=== PATIENT | male | born 1990 | race Two or more races ===

== ENCOUNTER 2024-09-13 20:16 | Inpatient (IN) | payer MEDICAID, OTHER ==
[~2024-09-13] VITALS: Ht 185.4 cm; Wt 111.3 kg
--- NOTE | 2024-09-13 20:36 | ED.PDOC ---
History of Present Illness HPI Comments 34 year old male came to ER due to high blood pressure. Patient does have history of hypertension and diabetes. Has good compliance to his medications. For the past 3 days, noted that his blood pressure has been elevated with headaches, left sided chest pains radiating to his left arm. Upon arrival blood pressure was 198/123 mmHg Chief Complaint: High Blood Pressure Time Seen by MD: 20:35 Reviewed Notes: Nurses Notes Allergies: Coded Allergies: Cephalexin (Verified Allergy, Unknown, 09/13/24) Information Source: Patient Mode of Arrival: Ambulatory Severity: Moderate Timing: Hours Duration: Since onset Prehospital treatment: None Past Medical History PAST MEDICAL HISTORY: DM, HTN Surgical History: Denies all surgeries Family History Family History: Reviewed,noncontributory to illness Social History Smoker: Non-Smoker Alcohol: Denies ETOH Use Drugs: Denies Drug Use Lives In: Home Constitutional: denies: chills, diaphoresis, fatigue, fever, malaise, sweats, weakness, others EENTM: denies: blurred vision, double vision, ear bleeding, ear discharge, ear drainage, ear pain, ear ringing, eye pain, eye redness, hearing loss, mouth pain, mouth swelling, nasal discharge, nose bleeding, nose congestion, nose pain, photophobia, tearing, throat pain, throat swelling, voice changes, others Respiratory: denies: cough, hemoptysis, orthopnea, SOB at rest, shortness of breath, SOB with excertion, stridor, wheezing, others Cardiovascular: reports: chest pain, left arm pain; denies: dizzy spells, diaphoresis, Dyspnea on exertion, edema, irregular heart beat, lightheadedness, palpitations, PND, syncope, others Gastrointestinal: denies: abdomen distended, abdominal pain, blood streaked bowels, constipated, diarrhea, dysphagia, difficulty swallowing, hematemesis, melena, nausea, poor appetite, poor fluid intake, rectal bleeding, rectal pain, vomiting, others Genitourinary: denies: burning, dysuria, flank pain, frequency, hematuria, incontinence, penile discharge, penile sore, pain, testicle pain, testicle swel ling, urgency, others Neurological: reports: headache; denies: dizziness, fainting, left sided numbness, left sided weakness, numbness, paresthesia, pre-existing deficit, right sided numbness, right sided weakness, seizure, speech problems, tingling, tremors, weakness, others Musculoskeletal: denies: back pain, gout, joint pain, joint swelling, muscle pain, muscle stiffness, neck pain, others Integumetry: denies: bruises, change in color, change in hair/nails, dryness, laceration, lesions, lumps, rash, wounds, others Allergic/Immunocompromised: denies: Difficulty Healing, Frequent Infections, Hives, Itching, others Hematologic/Lymphatic: denies: anemia, blood clots, easy bleeding, easy bruising, swollen glands, others Endocrine: denies: excessive hunger, excessive sweating, excessive thirst, excessive urination, flushing, intolerance to cold, intolerance to heat, unexplained weight gain, unexplained weight loss, others Psychiatric: denies: anxiety, bipolar disorder, depression, hopeless, panic disorder, schizophrenia, sleepless, suicidal, others Physical Exam General Appearance: No Apparent Distress, Normal HEENT: Normal ENT Inspection, Pharynx Normal, TMs Normal Neck: Full Range of Motion, Non-Tender, Normal, Normal Inspection Respiratory: Chest Non-Tender, Lungs Clear, No Accessory Muscle Use, No Respiratory Distress, Normal Breath Sounds Cardiovascular: No Edema, No JVD, No Murmur, No Gallop, Normal Peripheral Pulses, Regular Rate/Rhythm Breast Exam: Deferred Gastrointestinal: No Organomegaly, Non Tender, No Pulsatile Mass, Normal Bowel Sounds, Soft Genitalia: Deferred Pelvic: Deferred Rectal: Deferred Extremities: No calf tenderness, Normal capillary refill, Normal inspection, Normal range of motion, Non-tender, No pedal edema Musculoskeletal : Apperance: Normal Neurologic: Alert, enamel cracker II-XII nml as Tested, No Motor Deficits, Normal Affect, Normal Mood, No Sensory Deficits Cerebellar Function: Normal Reflexes: Normal Skin: Dry, Normal Color, Warm Lymphatic: No Adenopathy Was a procedure done? Was a procedure done?: No Differential Dx Considerations may include: anemia, electrolyte imbalance, hypertensive urgency X-Ray, Labs, Meds, VS Vital Signs Date Time Temp Pulse Resp B/P (MAP) Pulse Ox O2 Delivery O2 Flow Rate FiO2 09/13/24 22:51 180/120 09/13/24 22:14 96 18 180/120 (140) 96 09/13/24 21:11 94 18 171/116 (134) 96 09/13/24 20:29 98.0 99 18 198/123 (148) 96 Lab Test 09/13/24 21:48 09/13/24 20:56 Range/Units Troponin I High Sensitivity 5 4 </=54 ng/L White Blood Count 9.8 4.4-10.8 10^3/uL Red Blood Count 5.90 4.5-5.90 10^6/uL Hemoglobin 18.2 H 13.5-17.5 g/dL Hematocrit 52.1 41.0-53.0 % Mean Corpuscular Volume 88.2 80.0-100.0 fL Mean Corpuscular Hemoglobin 30.8 28.0-32.0 pg Mean Corpuscular Hemoglobin Concent 34.9 32.0-36.0 g/dL Red Cell Distribution Width 13.1 11.8-14.3 % Platelet Count 266 140-450 10^3/uL Mean Platelet Volume 9.0 6.9-10.8 fL Neutrophils (%) (Auto) 66.4 37.0-80.0 % Lymphocytes (%) (Auto) 23.3 10.0-50.0 % Monocytes (%) (Auto) 8.7 0.0-12.0 % Eosinophils (%) (Auto) 1.1 0.0-7.0 % Basophils (%) (Auto) 0.5 0.0-2.0 % Neutrophils # (Auto) 6.5 1.6-8.6 10 ^3/uL Lymphocytes # (Auto) 2.3 0.4-5.4 10 ^3/uL Monocytes # (Auto) 0.9 0-1.3 10 ^3/uL Eosinophils # (Auto) 0.1 0-0.8 10 ^3/uL Basophils # (Auto) 0.1 0-0.2 10 ^3/uL Nucleated Red Blood Cells 0.2 % Sodium Level 138 136-145 mmol/L Potassium Level 3.7 3.5-5.1 mmol/L Chloride Level 102 98-107 mmol/L Carbon Dioxide Level 28 20-31 mmol/L Anion Gap 8 5-15 Blood Urea Nitrogen 13 9-23 mg/dL Creatinine 1.39 H 0.700-1.30 mg/dL Glomerular Filtration Rate Calc 67 >90 mL/min BUN/Creatinine Ratio 9.4 L 10.0-20.0 Serum Glucose 169 H 74-106 mg/dL Calcium Level 9.8 8.7-10.4 mg/dL Current Medications Medications (Trade) Dose Ordered Sig/Thomas Route Start Time Stop Time Status Last Admin Hydralazine HCl (Apresoline Injection) 10 mg ONCE ONCE IV 09/13/24 22:45 09/13/24 22:46 DC 09/13/24 22:51 Time of 1ST Reevaluation: 20:30 Reevaluation 1ST: Unchanged Patient Education/Counseling: Diagnosis, Treatment Family Education/Counseling: No Family Present Departure 1 Departure Time of Disposition: 23:12 (Patient presented with hypertension and symptoms concerning for hypertensive emergency. Patient is receiving iv blood pressure medications requiring intensive monitoring. Data: 1. I ordered and reviewed the result of at least 3 labs including a CBC, BMP, and Urinalysis. 2. I independently interpreted the following tests: CT Brain: Which appears benign. EKG which is Normal Sinus RhythmRisk:This patient has a high risk of morbidity due to further diagnostic testing or treatment and may suffer from an acute cardiac disorder. Workup reveals hypertensive emergency and patient should be admitted for further workup. and possible expert consultation. ) Impression: Primary Impression: Hypertensive urgency Additional Impressions: Migraine Qualified Codes: G43.119 - Migraine with aura, intractable, without status migrainosus Near syncope Disposition: 09 ADMITTED INPATIENT Admit to: Med Surg Condition: Serious Critical Care Note Critical Care Time?: Yes (35 min-critical care time only) Critical care comment: Hypertensive urgency Authorized and Performed by: William Freeman MD Total critical care time: Approximately 34 minutes Due to a high probability of clinically significant, life threatening deterioration, the patient required my highest level of preparedness to intervene emergently and I personally spent this critical care time directly and personally managing the patient. This critical care time included obtaining a history; examining the patient; pulse oximetry; ordering and review of studies; arranging urgent treatment with development of a management plan; evaluation of patient's response to treatment; frequent reassessment; and, discussions with other providers. This critical care time was performed to assess and manage the high probability of imminent, life-threatening deterioration that could result in multi-organ failure. It was exclusive of separately billable procedures and treating other patients and teaching time. Please see my other sections and the rest of the note for further information on patient assessment and treatment. Stability Stability form required: No Heart Score Heart Score: Heart Score Response (Comments) Value History N/A 0 EKG N/A 0 Age N/A 0 Risk Factors N/A 0 Troponin N/A 0 Total 0 I personally scribed for WILLIAM FREEMAN MD ([email or web address]) on 09/13/24 at 20:35. Electronically submitted by Timothy Gregory ([email or web address]). WILLIAM FREEMAN MD Sep 13, 2024 20:35
--- NOTE | 2024-09-13 20:57 | DVH ---
EXAM: XY CHEST PORTABLE TECHNIQUE: Single frontal chest radiograph CLINICAL HISTORY: headache, htn COMPARISON: None Findings/Impression: Frontal chest radiograph demonstrates no acute osseous or superficial soft tissue abnormalities. The trachea is midline. The cardiac silhouette and mediastinum are within normal limits. No pneumothorax, pleural effusions, or consolidations.
--- NOTE | 2024-09-13 21:06 | DVH ---
Procedure: CT HEAD WITHOUT CONTRAST Study Date and Requested Time: 09/13/2024 08:36 PM History: headache, htn Comparison: None Dose: CTDI: 61.14 mGy DLP: 1204.82 mGycm Technique: Multiplanar images obtained through the brain without intravenous contrast. Findings: Mild diffuse brain atrophy. Mild chronic small vessel ischemic changes. 9 x 5 mm calcification along the left high convexity frontal falx. No hemorrhages, masses, mass effect, midline shift, herniation or cytotoxic edema following a large v ascular territory. No intra-axial or extra-axial fluid collections. No evidence of hydrocephalus. The basal cisterns are patent. Septum pellucidum et vergae. The pituitary gland, sella and parasellar regions are unremarkable. The cerebellar tonsils are in nor mal position. The cerebellum is unremarkable. The orbits and globes are unremarkable. The paranasal sinuses and mastoids are clear. There are no wo rrisome calvarial lesions. Impression: No evidence of acute intracranial abnormality.
[2024-09-13 21:36] LABS: Basophils # (auto) 0.1 10 ^3/uL (0-0.2); Eosinophils # (auto) 0.1 10 ^3/uL (0-0.8); Monocytes # (auto) 0.9 10 ^3/uL (0-1.3)
[2024-09-13 21:40] LABS: Basophils % (auto) 0.5 % (0.0-2.0); Eosinophils % (auto) 1.1 % (0.0-7.0); Hematocrit 52.1 % (41.0-53.0); Hemoglobin 18.2 g/dL (13.5-17.5); Lymphocytes # (auto) 2.3 10 ^3/uL (0.4-5.4); Lymphocytes % (auto) 23.3 % (10.0-50.0); Mean Corpuscular Hemoglobin 30.8 pg (28.0-32.0); Mean Corpuscular Hgb Conc. 34.9 g/dL (32.0-36.0); Mean Corpuscular Volume 88.2 fL (80.0-100.0); Monocytes % (auto) 8.7 % (0.0-12.0); Neutrophils # (auto) 6.5 10 ^3/uL (1.6-8.6); Neutrophils % (auto) 66.4 % (37.0-80.0); Nucleated Red Blood Cells % 0.2 %; Platelet Count (auto) 266 10^3/uL (140-450); Red Cell Distribution Width 13.1 % (11.8-14.3); White Blood Cell 9.8 10^3/uL (4.4-10.8)
[2024-09-13 21:45] LABS: Chloride 102 mmol/L (98-107); Potassium 3.7 mmol/L (3.5-5.1); Sodium 138 mmol/L (136-145)
[2024-09-13 21:46] LABS: Anion Gap 8 (5-15); Calcium 9.8 mg/dL (8.7-10.4); Carbon Dioxide 28 mmol/L (20-31)
[2024-09-13 21:51] LABS: BUN/Creatinine Ratio 9.4 (10.0-20.0); Blood Urea Nitrogen 13 mg/dL (9-23)
[2024-09-13 21:57] LABS: Glucose 169 mg/dL (74-106)
[2024-09-13] MEDS: hydrALAZINE HCL 20 MG/ML VL IV ONE (22:51)
[2024-09-13] MEDS: hydrALAZINE HCL 20 MG/ML VL ONE (22:51)
[2024-09-13] MEDS: SODIUM CHLORIDE 0.9% 1,000 ML IV ONE (23:27)
[2024-09-13] MEDS: ACETAMINOPHEN 325 MG TAB PO ONE (23:58)
[2024-09-13] MEDS: METOCLOPRAMIDE HCL 5MG/ml INJ 2ml VIAL IV ONE (23:58)
[2024-09-13] MEDS: KETOROLAC TROMETH 30 MG/ML 1ML VIAL IV ONE (23:58)
[2024-09-14] VITALS (9 sets, daily range): BP systolic 142–153; BP diastolic 91–104; PULSE 87–113; RESP 14–19; TEMP 97.5–98; O2SAT 95–98
[2024-09-14] MEDS ORDERED: DEXTROSE (50%) 50ML SYRG IV PRN (00:15)
[2024-09-14] MEDS ORDERED: ONDANSETRON HCL 4 MG/2 ML VIAL IV PRN (00:15)
[2024-09-14] MEDS ORDERED: cloNIDine HCL 0.1 MG TAB PO PRN (00:15)
[2024-09-14] MEDS ORDERED: HYDROcodone-ACET 5/325MG TAB PO PRN (00:15)
[2024-09-14] MEDS: amLODIPine BESYLATE 5 MG TAB PO SCH (00:29)
[2024-09-14] MEDS: LABETALOL HCL 20 MG/4 ML VL IV ONE (00:29)
--- NOTE | 2024-09-14 00:51 | DVHHP2 ---
Admitting Diagnosis: Hypertensive urgency, headaches, CP r/o ACS History of Present Illness History Source: Patient Exam Limitations: No limitations HPI Mr. Chaparro Vizcarra is a 34 year old male with a history of hypertension, DM, Lymphedema who presents with a chief complaint of high blood pressure. Patient reports he has not taken his blood pressure medication x 1 month. Patient endorses for the past 3 days, noted that his blood pressure has been elevated with headaches, left sided chest pains radiating to his left arm. Patient currently denies chest correa, dyspnea, dizziness, blurry vision, palpitations. Patient admitted for further evaluation. Home Meds Reported Medications Hctz (Hydrochlorothiazide) 25 Mg Tab, 50 MG PO 09/14/24 Atorvastatin Calcium (ATORVASTATIN CALCIUM) 40 Mg Tab, 1 TAB PO 09/14/24 Lisinopril (Lisinopril) 5 Mg Tab, 1 DAILY 09/14/24 Metformin Hydrochloride (Metformin Hcl) 1,000 Mg Tab, 1 09/14/24 Past Medical History Cardiac: HTN Pulmonary: No pertinent Hx Central Nervous System: No pertinent Hx GI: No pertinent Hx Hemotology/Oncology: No pertinent Hx Hepatobiliary: No pertinent Hx Psychiatric: No pertinent Hx Musculoskeletal: No pertinent Hx Rheumotologic: No pertinent Hx Infectious Disease: No peritnent Hx ENT: No pertinent Hx Renal/: No pertinent Hx Endocrine: NIDDM Dermatology: No pertinent Hx Others Lymphedema Smoker: No Hx (Negative) Alocohol: Occassional Drugs: None Lives with: With family Domestic Violence: Neg Review of Systems Constitutional: Other (headaches) Ears, Nose, & Throat: No symptom reported Eyes: No symptom reported Pulmonary/Respiratory: No symptom reported Cardiovascular: Chest Pain Gastrointestinal: No symptom reported Genitourinary: No symptom reported Musculoskeletal: No symptom reported Skin: No symptom reported Psychiatric: No symptom reported Endocrine: No symptom reported Hemotologic/Lymphatic: No symptom reported All Other Systems elevated blood pressure H&P Exam Vital Signs Vital Signs Date Time Temp Pulse Resp B/P (MAP) Pulse Ox O2 Delivery O2 Flow Rate FiO2 09/14/24 00:29 179/104 09/14/24 00:29 102 09/14/24 00:05 18 97 09/13/24 20:29 98.0 General Appeara: Well developed, Well nourished, Normal Appearance Head Exam: Normal inspection Neck Exam: Normal inspection, Non-tender, Normal alignment Eye Exam: bilateral eye Normal inspection, bilateral eye PERRL, bilateral eye EOMI Ear Exam: bilateral ear Auricle normal Nasal Exam: Normal inspection Mouth: Normal Inspection Pulmonary/Respiratory: Normal inspection, Normal breath sounds, Chest non- tender, Lungs clear Cardiovascular/Chest: Normal inspection, Regular rate, Normal Rhythm Peripheral Pulses: 2+ dorsalis pedis (R), 2+ dorsalis pedis (L), 2+ Radial (R), 2+ Radial (L) Abdominal Exam: Normal bowel sounds, Soft, No tenderness Rectal Exam: Deferred Back Exam: Normal inspection Male Genital Exam: Not done Legs: right leg other (lymphedema ) [employer] OFFICER Exam: Normal hearing, Normal speech, PERRL Motor/Sensory: Normal sensory function, Normal motor function Neuro/Mental St: Alert, Oriented Appearance: Appropriate appearance, Appropriate insight Eye contact/ Speech: Cooperative, Good eye contact, Normal speech Thoughts/Psych: Normal thought pattern Skin Exam: Normal inspection, Normal color, Warm/dry Labs/Xrays Labs Test 09/13/24 21:48 09/13/24 20:56 Range/Units Troponin I High Sensitivity 5 </=54 ng/L White Blood Count 9.8 4.4-10.8 10^3/uL Red Blood Count 5.90 4.5-5.90 10^6/uL Hemoglobin 18.2 H 13.5-17.5 g/dL Hematocrit 52.1 41.0-53.0 % Mean Corpuscular Volume 88.2 80.0-100.0 fL Mean Corpuscular Hemoglobin 30.8 28.0-32.0 pg Mean Corpuscular Hemoglobin Concent 34.9 32.0-36.0 g/dL Red Cell Distribution Width 13.1 11.8-14.3 % Platelet Count 266 140-450 10^3/uL Mean Platelet Volume 9.0 6.9-10.8 fL Neutrophils (%) (Auto) 66.4 37.0-80.0 % Lymphocytes (%) (Auto) 23.3 10.0-50.0 % Monocytes (%) (Auto) 8.7 0.0-12.0 % Eosinophils (%) (Auto) 1.1 0.0-7.0 % Basophils (%) (Auto) 0.5 0.0-2.0 % Neutrophils # (Auto) 6.5 1.6-8.6 10 ^3/uL Lymphocytes # (Auto) 2.3 0.4-5.4 10 ^3/uL Monocytes # (Auto) 0.9 0-1.3 10 ^3/uL Eosinophils # (Auto) 0.1 0-0.8 10 ^3/uL Basophils # (Auto) 0.1 0-0.2 10 ^3/uL Nucleated Red Blood Cells 0.2 % Sodium Level 138 136-145 mmol/L Potassium Level 3.7 3.5-5.1 mmol/L Chloride Level 102 98-107 mmol/L Carbon Dioxide Level 28 20-31 mmol/L Anion Gap 8 5-15 Blood Urea Nitrogen 13 9-23 mg/dL Creatinine 1.39 H 0.700-1.30 mg/dL Glomerular Filtration Rate Calc 67 >90 mL/min BUN/Creatinine Ratio 9.4 L 10.0-20.0 Serum Glucose 169 H 74-106 mg/dL Calcium Level 9.8 8.7-10.4 mg/dL Assessment/Plan Problem List: (1) Chest pain (2) Hypertensive urgency (3) Migraine Plan This is a 34 yo male with known history of hypertension, DM, Lymphedema who presents with a chief complaint of headaches, chest pain, and elevated blood pressure. Patient found to have 1. Hypertensive Urgency 2. CP rule out ACS Plan Admit Telemetry Cardiology consultation, 2D echocardiogram, serial troponin levels, ASA, Statin Lipid panel Analgesic for pain management as needed Antihypertensive for optimal blood pressure management Discussed all above with patient who verbalizes agreement and understanding of care plan. All questions were answered. Discussed assessment and care plan with supervising MD. Plan discussed with: Patient, Other Code Visit Code Visit Total Time (mins): 45 Additional Comments Additional Comments Additional Comments Patient was seen and evaluated by me. I agree with the assessment and plan as outlined by my nurse practitioner. POORNIMA ADAME Sep 14, 2024 00:51 VAMSHI COURTNEY MD Sep 14, 2024 15:35
[2024-09-14 01:38] LABS: HDL Cholesterol 43 mg/dL (40-59)
[2024-09-14 01:40] LABS: Cholesterol 237 mg/dL (< 200); LDL Cholesterol 180 mg/dL (< 100); Triglycerides 199 mg/dL (< 150)
[2024-09-14] MEDS: ACCU-CHEK COMFORT CURVE STRIP VI SCH (06:32)
[2024-09-14] MEDS: InsuLIN REG 1unit/0.01ml Soln (100units/ml) SC SCH (06:35)
[2024-09-14] MEDS: ASPirin 81 mg TAB PO SCH (09:38)
[2024-09-14] MEDS: FAMOTIDINE 20 MG TAB PO SCH (09:40)
[2024-09-14] MEDS: hydrALAZINE HCL 20 MG/ML VL IV PRN (10:21)
[2024-09-14] MEDS ORDERED: METF-372 (14:27)
[2024-09-14] MEDS ORDERED: LISI-275 (14:27)
[2024-09-14] MEDS ORDERED: ATOR40TA52 PO (14:27)
[2024-09-14] MEDS ORDERED: HYDR25TA5 PO (14:27)
--- NOTE | 2024-09-14 16:37 | DVHSR ---
APPROVED REPORT EXAM: Two-dimensional and M-mode echocardiogram with Doppler and color Doppler. Blood Pressure: 150/84 mmHg INDICATION Chest Pain Hypertensive Urgency RISK FACTORS Height: 5' 11", Weight: 252 DIMENSIONS LVDd4.9 (3.8-5.7cm)LA (2D)4.0 (1.9-4.0cm)Aortic Root2.8 (2.0-3.7cm) LVDs3.4 (2.5-4.0cm)LA (MM) (1.9-4.0cm)Aortic Cusp Exc1.6 (1.5-2.0cm) EF (%) 60.0 (55-70%)Rt. Atrium3.5 (1.9-4.0cm)Asc. Aorta cm IVSd1.0 (0.7-1.1cm)RV (D) (1.8-2.4cm) PWd1.1 (0.7-1.1cm) Mitral Valve MitralMitral Stenosis E wave1.00m/sMV Mean GR.mmHg A wave1.00m/sMV Peak GR.mmHg E/A ratio1.02D MVAcm2 Aortic Valve Aortic ValveAortic Stenosis V10.80m/Rola Mean GR.4mmHg V21.40m/Rola Peak GR.9mmHg LVOT Diameter2.1 (1.8-2.4cm)Doppler AVA1.98cm2 Pulmonic Valve V20.60m/s Conclusion Technically good study. Sinus rhythm. Left atrial enlargement. Valves are normal. EF is 60% with normal RV function. Mild tricuspid insufficiency. No pericardial effusion masses or vegetations.
[2024-09-14] MEDS: ACETAMINOPHEN 325 MG TAB PO PRN (16:53)
--- NOTE | 2024-09-14 16:54 | DVHINCON2 ---
Date Seen: Sep 14, 2024 Referring Physician FLEX Carreon Reason for Consultation Hypertensive urgency History of Present Illness This is a 34-year-old man who presented to the emergency room with a chief complaint of high blood pressure. The patient reports ongoing uncontrolled high blood pressure for approximately three days including a home BP of 198/145 mmHg associated MUNOZ, substernal chest tightness, and left upper extremity tingling. Reports he stopped taking his lisinopril 10 mg q.d. and hydrochlorothiazide 25 mg q.d. approximately five months ago. He underwent a 12 lead electrocardiogram revealing a sinus tachycardia rhythm with a rate at 105 bpm. Significant medical history includes hypertension, omj-isgjwyh-vqkpeqzyv diabetes mellitus, dyslipidemia, and lymphedema. Past Medical History Past medical history reviewed. No other significant than mentioned above. Past Surgical History Neuroblastoma Skin graft to LLE Abdominal at 5 Y.O. Family History: Patient reports no known family medical history. Family History Family history reviewed. Social History Denies the use of illicit drugs or tobacco use. Admits to alcohol use and excessive energy drinks. Allergies: Coded Allergies: Cephalexin (Verified Allergy, Unknown, 09/13/24) Home Meds Reported Medications Hctz (Hydrochlorothiazide) 25 Mg Tab, 50 MG PO 09/14/24 Atorvastatin Calcium (ATORVASTATIN CALCIUM) 40 Mg Tab, 1 TAB PO 09/14/24 Lisinopril (Lisinopril) 5 Mg Tab, 1 DAILY 09/14/24 Metformin Hydrochloride (Metformin Hcl) 1,000 Mg Tab, 1 09/14/24 Home Meds Home medications reviewed. Current Medications Current Medications Medications (Trade) Dose Ordered Sig/Thomas Route PRN Reason Start Time Stop Time Status Last Admin Amlodipine Besylate (Norvasc Tablet) 5 mg BID PO 09/14/24 00:15 09/14/24 16:39 DC 09/14/24 09:40 Hydralazine HCl (Apresoline Injection) 10 mg Q6HP PRN IV SBP>160 09/14/24 00:15 09/14/24 16:23 Clonidine HCl (Catapres Tablet) 0.1 mg Q8HPRN PRN PO SBP>180 09/14/24 00:15 Ondansetron HCl (Zofran) 4 mg Q6HPRN PRN IV NAUSEA / VOMITING 09/14/24 00:15 Acetaminophen (Tylenol Tablet) 650 mg Q6HPRN PRN PO PAIN SCALE 1-3 OR TEMP>100.4 09/14/24 00:15 Acetaminophen/ Hydrocodone Bitart ([place] 5/325MG Tab) 1 tab Q6HPRN PRN PO PAIN SCALE 1 THRU 6 09/14/24 00:15 Famotidine (Pepcid Tablet) 20 mg BID PO 09/14/24 10:00 09/14/24 09:40 Diagnostic Test (Pha) (Accu-Chek Comfort Curve T) 1 strip ACHS 09/14/24 07:00 09/14/24 12:06 Insulin Human Regular (InsuLIN R) ACHS SC 09/14/24 07:00 09/14/24 12:06 Dextrose 50 ml UD PRN IV Blood Sugar LESS THAN 60 09/14/24 00:15 Aspirin 81 mg DAILY PO 09/14/24 10:00 09/14/24 09:38 Atorvastatin Calcium (Lipitor) 40 mg HS PO 09/14/24 22:00 Chlorthalidone (Chlorthalidone) 25 mg DAILY@BREAKFAST PO 09/15/24 08:00 UNV Nifedipine (Procardia Xl (Time-Release)) 60 mg DAILY PO 09/15/24 10:00 UNV Review of Systems Constitutional: No symptom reported Ears, Nose, & Throat: No symptom reported Eyes: No symptom reported Neurological: MUNOZ Pulmonary/Respiratory: No symptom reported Cardiovascular: Chest pain Gastrointestinal: No symptom reported Genitourinary: No symptom reported Musculoskeletal: No symptom reported Skin: No symptom reported Psychiatric: No symptom reported Endocrine: No symptom reported Hemotologic/Lymphatic: No symptom reported Vital Signs Vital Signs Date Time Temp Pulse Resp B/P (MAP) Pulse Ox O2 Delivery O2 Flow Rate FiO2 09/14/24 16:23 179/107 09/14/24 13:05 97.5 108 98 97.5 09/14/24 11:40 16 09/14/24 11:40 Room Air* 0 21 Physical Exam General Appearance: Cooperative. Well developed. Obese. In no acute distress Head Exam: Normal inspection Neck Exam: Normal inspection. Non-tender. Normal alignment Pulmonary/Respiratory: Chest non-tender. Clear bilateral breath sounds Cardiovascular/Chest: Regular rate and rhythm. S1, S2. Sinus rhythm. No murmurs. No JVD. Peripheral Pulses: 2+ Radial (R). 2+ Radial (L). 2+ Pedal (R). 2+ Pedal (L) Abdominal Exam: Normal bowel sounds. Soft. Nontender. No hepatospenomegaly. No masses Ankle Exam: Negative ankle edema Lower extremities: Negative lower extremity edema Neuro/Mental Status: A&O x4. Coherent Thoughts/Psych: Normal thought pattern. Appropriate mood and affect. Good judgement and insight Appearance: In no acute distress Skin Exam: Normal inspection. Normal color. Warm. Dry Labs/Diagnostic Data Labs Test 09/14/24 14:15 09/14/24 11:29 09/14/24 06:32 09/13/24 21:48 Range/Units Troponin I High Sensitivity 4 </=54 ng/L POC Glucose 195 H 70-106 mg/dl Triglycerides Level 199 H < 150 mg/dL Cholesterol Level 237 H < 200 mg/dL LDL Cholesterol 180 H < 100 mg/dL HDL Cholesterol 43 40-59 mg/dL Test 09/13/24 20:56 Range/Units White Blood Count 9.8 4.4-10.8 10^3/uL Red Blood Count 5.90 4.5-5.90 10^6/uL Hemoglobin 18.2 H 13.5-17.5 g/dL Hematocrit 52.1 41.0-53.0 % Mean Corpuscular Volume 88.2 80.0-100.0 fL Mean Corpuscular Hemoglobin 30.8 28.0-32.0 pg Mean Corpuscular Hemoglobin Concent 34.9 32.0-36.0 g/dL Red Cell Distribution Width 13.1 11.8-14.3 % Platelet Count 266 140-450 10^3/uL Mean Platelet Volume 9.0 6.9-10.8 fL Neutrophils (%) (Auto) 66.4 37.0-80.0 % Lymphocytes (%) (Auto) 23.3 10.0-50.0 % Monocytes (%) (Auto) 8.7 0.0-12.0 % Eosinophils (%) (Auto) 1.1 0.0-7.0 % Basophils (%) (Auto) 0.5 0.0-2.0 % Neutrophils # (Auto) 6.5 1.6-8.6 10 ^3/uL Lymphocytes # (Auto) 2.3 0.4-5.4 10 ^3/uL Monocytes # (Auto) 0.9 0-1.3 10 ^3/uL Eosinophils # (Auto) 0.1 0-0.8 10 ^3/uL Basophils # (Auto) 0.1 0-0.2 10 ^3/uL Nucleated Red Blood Cells 0.2 % Sodium Level 138 136-145 mmol/L Potassium Level 3.7 3.5-5.1 mmol/L Chloride Level 102 98-107 mmol/L Carbon Dioxide Level 28 20-31 mmol/L Anion Gap 8 5-15 Blood Urea Nitrogen 13 9-23 mg/dL Creatinine 1.39 H 0.700-1.30 mg/dL Glomerular Filtration Rate Calc 67 >90 mL/min BUN/Creatinine Ratio 9.4 L 10.0-20.0 Serum Glucose 169 H 74-106 mg/dL Calcium Level 9.8 8.7-10.4 mg/dL B-Type Natriuretic Peptide 1.43 0-100 pg/mL Assessment Chest pain in the setting of hypertensive urgency Paw-ddwhusu-kutahjzex diabetes mellitus Dyslipidemia Alcohol/energy drink use Medical noncompliance Obesity Plan/Recommendation (Dr. Prieto) Patient presents with chest pain in the setting of hypertensive urgency. Continue aggressive blood pressure control with chlorthalidone and nifedipine. Uptitrate as necessary for a target SBP <140 mmHg. Add carvedilol if deemed necessary after uptitrating aforementioned medications. Unremarkable trans thoracic echocardiogram. Strongly counseled on medical compliance with medical therapy, weight loss, and low-Na diet. No further cardiac workup indicated at this time. Kindly call if in need to re-consult. Thank you for allowing us to participate in this patient's care. This medical document was created using an electronic medical record system with voice recognition software and computerized dictation system. Although this document has been carefully reviewed, there might still be some phonetic and typographical errors. Occasional wrong-word or ``sound-alike substitutions may have occurred due to the inherent limitations of voice recognition software. These areas are purely typographical due to imperfections of the software programs and do not reflect any compromise in the patient's medical care. Please read the chart carefully and recognize, using context, where these substitutions have occurred. Plan discussed with: Patient, Other NYHA Physical activity limitations: NA Date of Service: Sep 14, 2024 Billing Provider: GILMAN,TAMRA CRYPTOLOGIC SUPPORT SPECIALIST Cardiology Common Codes: 50712-OFJXFRR INP/OBS CARE (High) TAMRA GILMAN CRYPTOLOGIC SUPPORT SPECIALIST Sep 14, 2024 16:53
[2024-09-14] MEDS: NIFEdipine ER 30 MG TAB PO ONE (17:28)
[2024-09-14] MEDS: CHLORTHALIDONE 25 MG TAB PO ONE (17:29)
[2024-09-14] MEDS: ATORVASTATIN 20 MG TAB PO SCH (21:52)
[2024-09-15 01:00] VITALS: BP 153/101; PULSE 95; RESP 20; TEMP 97.6; O2SAT 98
[2024-09-15 05:00] VITALS: BP 151/96; PULSE 95; RESP 18; TEMP 97.5; O2SAT 96
[2024-09-15 07:28] LABS: Chloride 101 mmol/L (98-107); Potassium 3.6 mmol/L (3.5-5.1); Sodium 136 mmol/L (136-145)
[2024-09-15 07:29] LABS: Anion Gap 9 (5-15); Carbon Dioxide 26 mmol/L (20-31)
[2024-09-15 07:35] LABS: BUN/Creatinine Ratio 8.2 (10.0-20.0)
[2024-09-15 07:38] LABS: Blood Urea Nitrogen 8 mg/dL (9-23); Glucose 145 mg/dL (74-106)
[2024-09-15 08:00] VITALS: PULSE 102; PULSE 107; RESP 17; O2SAT 94
[2024-09-15] MEDS: NIFEdipine ER 30 MG TAB PO SCH ×2 (08:38→10:00)
[2024-09-15] MEDS: CHLORTHALIDONE 25 MG TAB PO SCH (08:38)
[2024-09-15 09:00] VITALS: BP 152/102; PULSE 102; RESP 17; TEMP 97.6; O2SAT 94
[2024-09-15 13:00] VITALS: BP 148/107; PULSE 111; RESP 17; TEMP 97.6; O2SAT 96
[2024-09-16 10:41] LABS: Hepatitis B Surface Antigen Negative (Negative); Hepatitis C Antibody Negative (Negative)
--- NOTE | 2024-09-16 16:14 | ECG ---
[facility] Test Date: 2024-09-13 Test Time: 20:33:24 Pat Name: RIKA ROYAL Department: ER Room: 0245T B Gender: M Merchandise Director: JALEN : 1990 Requested By: WILLIAM GOMEZ Order Number: [id number] Reading MD: Measurements Intervals [place] Rate: 105 P: 56 DE: 151 QRS: 33 QRSD: 87 T: 0 QT: 337 QTc: 446 Interpretive Statements Sinus tachycardia Probable left atrial enlargement Borderline T abnormalities, lateral leads Please click the below link to view image of tracing.
== END 2024-09-15 14:54 | disposition left against medical advice (07) | DRG 199 ==
LOC: ER 20:16 → OVERFLOW 09-14 00:05 → TELE-EAST 09-14 18:15
PROVIDERS: ADMIT Nurse Practitioner Family; ATTEND Nurse Practitioner Family
DX: I16.0 Hypertensive urgency (principal); N17.0 Acute kidney failure with tubular necrosis; E11.9 Type 2 diabetes mellitus without complications; E78.5 Hyperlipidemia, unspecified; E66.9 Obesity, unspecified; Z53.29 Procedure and treatment not carried out because of patient's decision for other reasons; G43.909 Migraine, unspecified, not intractable, without status migrainosus; Z88.1 Allergy status to other antibiotic agents; Z79.84 Long term (current) use of oral hypoglycemic drugs; Z85.858 Personal history of malignant neoplasm of other endocrine glands; Z87.891 Personal history of nicotine dependence; Z91.199 Patient's noncompliance with other medical treatment and regimen due to unspecified reason; Z68.33 Body mass index [BMI] 33.0-33.9, adult; Z79.899 Other long term (current) drug therapy
CPT/HCPCS: 36415; 70450; 71045; 80048; 80061; 82962; 83036; 83735; 83880; 84443; 84484; 85025; 86803; 87340; 93306; 96361; 96374; 96375; 99291; G0378; J1815; J1885